=== PATIENT | male | born 1945 | race Two or more races ===

== ENCOUNTER 2020-08-28 05:00 | Day surgery (SDC) | payer OTHER ==
[~2020-08-28 05:00] MED LIST: CLONAZEPAM0.5 MG PO; JANUVIA25 MG PO; LOSARTAN POTASS50 MG PO; NOVOLIN 70100 UNIT/1; RESTORIL30 M1 PO; SERTRALINE PO
[2020-08-28] MEDS ORDERED: PERCOCET 5-3251 EACH PO (08:10)
[2020-08-28] MEDS ORDERED: RECTICARE30 GM TOP (08:11)
[2020-08-28] MEDS ORDERED: TAMS0.4C PO (14:07)
== END 2020-08-28 14:21 | disposition home or self-care (01) ==
LOC: CIR.AMB 05:00
PROVIDERS: ATTEND Surgery
DX: K62.0 Anal polyp (principal); Z20.828 Contact with and (suspected) exposure to other viral communicable diseases